=== PATIENT | male | born 1965 | race Caucasian/White ===

== ENCOUNTER 2016-03-27 12:39 | Emergency (ER) | payer OTHER ==
[~2016-03-27] VITALS: Ht 172.7 cm; Wt 82.3 kg
[~2016-03-27 12:39] MED LIST: REFLUX MEDICATION PO
[2016-03-27 12:42] VITALS: BP 173/104; PULSE 88; RESP 24; TEMP 97.9; O2SAT 97
--- NOTE | 2016-03-27 12:46 | PD ---
Physical Exam Time Seen by Provider: 12:44 Narrative 50 year old male with history of HTN, not taking an medication presents to the ED for evaluation of wet concrete in his L eye. Pt reports 10/10 pain. No other symptoms to report. Data Data Last Documented VS Vital Signs Date Time Temp Pulse Resp B/P Pulse Ox O2 Delivery O2 Flow Rate FiO2 03/27/16 12:42 97.9 88 24 173/104 97 Room Air Orders Eye Irrigation (03/27/16 13:16) Call Poison Control (03/27/16 13:16) Proparacaine 0.5% Opth Soln (Alcaine 0.5 (03/27/16 13:30) MDM Medical Record Reviewed: Yes Supervised Visit with RASHAUN: No Narrative Course Interviewed in triage. Bedded in FT Scripts Ibuprofen 800 Mg [id number] Mg PO Q6HR PRN (PAIN) #30 TAB Ref 0 Prov:Chelsi Lemus 03/27/16 Erythromycin Opth Oint 5 Mg/Gm Oint1 Applic LEFT EYE QID 10 Days Ref 1 Prov:Chelsi Lemus 03/27/16 Condition: Stable Katharina Rosado Mar 27, 2016 12:46
--- NOTE | 2016-03-27 13:17 | PD ---
HPI Chief Complaint: Eye Problems/Injury Time Seen by Provider: 13:16 Travel History International Travel<30 days: No Contact w/Intl Traveler<30days: No Traveled to known affect area: No History of Present Illness HPI 50-year-old male presents to the emergency Department with complaint of severe left eye pain after concrete got into his eye while working today approximately 45 minutes ago. He had his safety glasses on and they concrete splashed up under his glasses into his left eye. He has not flushed his eye. He has not taken any medications to try to determine stability symptoms. He says he cannot open his eye because the pain of the light. Denies fever, chills, nausea , vomiting. Denies significant past medical history. Does say that he checks his blood pressure regularly and has been taking herbal supplements to lower his blood pressure, but has not been diagnosed with hypertension. Allergies to penicillin. No other modifying factors or associated signs and symptoms. PFSH Past Medical History Blood Disorders: No Cardiovascular Problems: No Chest Pain: Yes Endocrine: No GERD: Yes Genitourinary: No Hypertension: Yes Musculoskeletal: No Neurologic: No Psychiatric: No Reproductive: No Past Surgical History Abdominal Surgery: No Cardiac Surgery: No Ear Surgery: No Endocrine Surgery: No Eye Surgery: No Genitourinary Surgery: No Gynecologic Surgery: No Oral Surgery: No Thoracic Surgery: No Social History Alcohol Use: Yes Tobacco Use: Yes Substance Use: No Allergies-Medications (Allergen,Severity, Reaction): Coded Allergies: Penicillin (Verified Allergy, Severe, RASH, 03/27/16) Reported Meds & Prescriptions Reported Meds & Active Scripts Active Ibuprofen 800 Mg Tab 800 Mg PO Q6HR PRN Erythromycin Opth Oint 5 Mg/Gm Oint 1 Applic LEFT EYE QID 10 Days Review of Systems Except as stated in HPI: all other systems reviewed are Neg Physical Exam Narrative GENERAL: Well-nourished, well-developed patient, in no acute distress SKIN: Warm and dry. HEAD: Atraumatic. Normocephalic. EYES: Pupils equal and round at 3 mm with brisk reaction. PERRLA. EOMI. Left lid eversion with no foreign body noted. Left eye with scleral erythema and without lid edema. No orbital tenderness, erythema or cellulitis. Left eye with photophobia. No consensual photophobia. No scleral icterus. Clear drainage. Maynard lamp exam reveals a large corneal chemical burn to the medial and anterior aspect of the eyeball, encompassing probably more than 50% of the eyeball; there is also a small area of chemical burn to the lateral aspect of the eyeball. ENT: Mucosa pink and moist. Airway patent. NECK: Trachea midline. CARDIOVASCULAR: Regular rate. RESPIRATORY: No accessory muscle use. GASTROINTESTINAL: Flat. NEUROLOGICAL: Awake and alert. Oriented 3. No obvious cranial nerve deficits. Motor grossly within normal limits. Normal speech. PSYCHIATRIC: Appropriate mood and affect; insight and judgment normal. Data Data Last Documented VS Vital Signs Date Time Temp Pulse Resp B/P Pulse Ox O2 Delivery O2 Flow Rate FiO2 03/27/16 12:42 97.9 88 24 173/104 97 Room Air Orders Eye Irrigation (03/27/16 13:16) Call Poison Control (03/27/16 13:16) Proparacaine 0.5% Opth Soln (Alcaine 0.5 (03/27/16 13:30) MDM Medical Decision Making Medical Screen Exam Complete: Yes Emergency Medical Condition: Yes Medical Record Reviewed: Yes Differential Diagnosis Chemical insult, corneal chemical burn, corneal abrasion Narrative Course 50-year-old male with left eye chemical insult with concrete and the last 45 minutes. Left eye numbed with proparacaine. Liter normal saline eye irrigation ordered. 1350: PH of left eye 7. Maynard lamp exam reveals large chemical burn that appears to be more than 50% of the eyeball to the medial and anterior aspect. Callout to ophthalmology placed. 1400: I spoke with Dr. Crabtree, housekeeping staff, and he recommended for the patient to follow-up in his office immediately. The patient was urgently discharged and sent to Dr. Rivera's office. Patient verbalized understanding and agreement, and agreed he will follow up with Dr. Crabtree immediately. Ibuprofen and erythromycin eye ointment prescribed for home. Patient is medically cleared and stable for discharge. Discussed reasons to return to the emergency department. Instructed patient to follow up with primary care provider. Patient agrees with treatment plan. The patients vital signs are stable and the patient is stable for outpatient follow-up and treatment. Patient discharged home, stable and in no acute distress. Diagnosis Primary Impression: Chemical insult, eye Qualified Code: T26.42XA - Chemical insult, eye, left, initial encounter Additional Impression: Corneal chemical burn Qualified Code: T26.62XA - Corneal chemical burn, left, initial encounter Referrals: Temo Crabtree MD Primary Care Physician Patient Instructions: [facility] ([facility]), General Instructions Additional Instructions: Ibuprofen or Tylenol as directed and as needed to reduce pain Do not rub the eye Refrigerated eye drops as needed to reduce pain Cool compresses to the eye as needed to reduce pain Follow-up with ophthalmology Primary care provider Return to the emergency department immediately Med/Other Pt SpecificInfo: Prescription(s) given Scripts Ibuprofen 800 Mg [id number] Mg PO Q6HR PRN (PAIN) #30 TAB Ref 0 Prov:Chelsi Lemus 03/27/16 Erythromycin Opth Oint 5 Mg/Gm Oint1 Applic LEFT EYE QID 10 Days Ref 1 Prov:Chelsi Lemus 03/27/16 Disposition: 01 DISCHARGE HOME Condition: Stable Chelsi Lemus Mar 27, 2016 13:17
[2016-03-27] MEDS ORDERED: PROPARACAINE HCL 0.5% OPHT SOLN 15 ML BTL LEFT EYE ONE (13:30)
[2016-03-27] MEDS ORDERED: ERYTOIN10 LEFT EYE (13:52)
[2016-03-27] MEDS ORDERED: IBUP800T23 PO (13:52)
== END 2016-03-27 14:20 | disposition home or self-care (01) ==
LOC: NEPB 12:39
DX: T26.62XA Corrosion of cornea and conjunctival sac, left eye, initial encounter (principal); T26.42XA Burn of left eye and adnexa, part unspecified, initial encounter; Y93.89 Activity, other specified; Y92.89 Other specified places as the place of occurrence of the external cause; Y99.0 Civilian activity done for income or pay; I10 Essential (primary) hypertension
CPT/HCPCS: 99283